=== PATIENT | male | born 1990 | race Caucasian/White ===

== ENCOUNTER 2017-10-09 13:51 | Emergency (ER) | payer SELFPAY ==
[2017-10-09 14:03] VITALS: BP 144/80
[2017-10-09] MEDS ORDERED: HYDROCODONE/ACETAMINOPHEN 5-325 MG (6 TAB/ER DISP) PO PRN (14:18)
[2017-10-09] MEDS ORDERED: LIDOCAINE 2% VISCOUS SOLN 20 ML UDCUP PO ONE (14:18)
[2017-10-09] MEDS ORDERED: PENICILLIN V POTASSIUM 500 MG TABLET PO ONE (14:18)
--- NOTE | 2017-10-09 14:25 | ER Document Report ---
HPI - HPI Patient complains to provider of: Dental pain tooth 18 and 14 Onset: Last week Quality of pain: Sharp, Throbbing Pain Level: 5 Context: 27-year-old male presented to ED for dental pain on tooth #18 and 14. He states he has had pain in this area for over a month but has not been able to follow-up with a dentist as he does not have dental insurance. Associated Symptoms: Other - Dental pain Exacerbated by: Other - Cold Relieved by: Denies Similar symptoms previously: Yes Recently seen / treated by doctor: No - ROS ROS below otherwise negative: Yes - CONSTITUTIONAL Constitutional: DENIES: Fever, Chills - EENT EENT: DENIES: Sore Throat, Ear Pain, Nasal Drainage-Clear, Nasal Drainage- Purulent, Congestion, Eye problems Notes: Dental pain tooth #14 and 18 - NEURO Neurology: DENIES: Headache, Weakness, Vision blurred, Dizzinesss / Vertigo - CARDIOVASCULAR Cardiovascular: DENIES: Chest pain - RESPIRATORY Respiratory: DENIES: Trouble Breathing, Coughing - GASTROINTESTINAL Gastrointestinal: DENIES: Abdominal Pain, Nausea, Patient vomiting, Diarrhea, Constipation, Black / Bloody Stools - URINARY Urinary: DENIES: Dysuria, Urgency, Frequency - REPRODUCTIVE Reproductive: DENIES: :, Postmenopausal, Abnormal bleeding / discharge - MUSCULOSKELETAL Musculoskeletal: DENIES: Extremity pain, Back Pain, Neck Pain, Swelling - DERM Skin Color: Normal Skin Problems: None Past Medical History - General Information source: Patient - Social History Smoking Status: Current Every Day Smoker Cigarette use (# per day): Yes - One half pack per day Chew tobacco use (# tins/day): No Smoking Education Provided: Yes - Minutes Frequency of alcohol use: Occasional Drug Abuse: None Occupation: Cook Lives with: Alone Family History: denies: Arthritis, CAD, COPD, CVA, DM, Hyperlipidemia, Hypertension, Malignancy, Thyroid Disfunction Patient has suicidal ideation: No Patient has homicidal ideation: No - Past Medical History Cardiac Medical History: Reports: None Pulmonary Medical History: Reports: None EENT Medical History: Reports: None Neurological Medical History: Reports: None Endocrine Medical History: Reports: None Renal/ Medical History: Reports: None Malignancy Medical History: Reports None GI Medical History: Reports: None Musculoskeltal Medical History: Reports None Skin Medical History: Reports None Psychiatric Medical History: Reports: None Traumatic Medical History: Reports: None Infectious Medical History: Reports: None Surgical Hx: Negative Past Surgical History: Reports: None - Immunizations Immunizations up to date: Yes Hx Diphtheria, Pertussis, Tetanus Vaccination: Yes Vertical Provider Document - CONSTITUTIONAL Agree With Documented VS: Yes Exam Limitations: No Limitations General Appearance: WD/WN, No Apparent Distress - INFECTION CONTROL TRAVEL OUTSIDE OF THE [place] IN LAST 30 DAYS: No - HEENT HEENT: Atraumatic, Normal ENT Exam, Normocephalic, PERRLA Mouth Diagram: 1 - Dental pain and tooth #14 with redness surrounding the tooth 2 - Dental pain in tooth #18 with redness surrounding the tooth - RESPIRATORY O2 Sat by Pulse Oximetry: 99 Course - Re-evaluation Re-evalutation: 10/10/17 02:15 Patient was treated with Penicillin VK in the emergency room and sent home with prescription for the Penicillin VK. Patient was also treated discussed lidocaine in a syringe that he can apply a small amount to the painful area every 2-3 hours as needed patient is instructed to follow-up with a dentist as this is only a temporary fix that he needs to have a tooth treated. - Vital Signs Vital signs: Temp Pulse Resp BP Pulse Ox 98.4 F 82 20 144/80 H 99 10/09/17 14:02 10/09/17 14:02 10/09/17 14:02 10/09/17 14:02 10/09/17 14:02 Discharge - Discharge Clinical Impression: Pain due to dental caries Condition: Stable Disposition: HOME, SELF-CARE Instructions: Family Physicians / Practices Additional Instructions: TOOTHACHE: Your pain is due to dental decay. The tooth must be repaired in order for you to feel better. You will, therefore, be referred to a dentist. We do not have dentists on the staff at [facility]. Severe swelling or drainage around a tooth usually means a dental abscess. This also requires evaluation and treatment by the dentist, but antibiotics may be prescribed while awaiting dental treatment. You should be rechecked immediately if you develop major swelling of the face, increasing pain, a lump in the jaw or gums, headache, difficulty swallowing, or fever. ORAL NARCOTIC MEDICATION: You have been given a Norman dispense pack for pain control. This medication is a narcotic. It's best taken with food, as nausea can result if taken on an empty stomach. Don't operate machinery or drive within six hours of taking this medication. Do not combine this medicine with alcohol, or with any medication which can cause sedation (such as cold tablets or sleeping pills) unless you get permission from the physician. Narcotics tend to cause constipation. If possible, drink plenty of fluids and eat a diet high in fiber and fruits. Please be aware that prescription narcotics also have the potential for abuse. People become addicted to these medications because of the general sense of wellbeing that they induce. This feeling along with a significant reduction in tension, anxiety, and aggression provides a stimulating seductive quality to these drugs. Once your pain is under control, we encourage you to discard your unused narcotics. PENICILLIN V K: You have been given a prescription for Penicillin VK. Your physician has determined that this is the best antibiotic for your condition. Pen VK can be taken with meals, however more of the antibiotic gets into the bloodstream if it's taken on an empty stomach. Penicillin usually has no side effects. However, allergy to penicillins is common. If you have had an allergic reaction to any drug of the penicillin family, you should never take any other penicillin. Notify your doctor at once if you develop hives, itching, swelling, faintness, or shortness of breath. FOLLOW-UP CARE: You have been referred for follow-up care to the dentists listed below. Call the dentists office for an appointment as you were instructed or within the next two days. If you experience worsening or a significant change in your symptoms, notify the physician immediately or return to the Emergency Department at any time for re-evaluation. [facility] [address] [place], [place] Saturday mornings, by appointment [facility] [address] [place] [address] [facility] [address] [facility] [address] [facility].. [facility] [address] [place] [email or web address] [address] [place] [address] Saturday- 8:00am to 5:00 pm Will see patients from other [facility]. Charges based on income and family size and accepts Medicare, Medicaid, and Insurances Will pull molars [facility] [id number] Hours of Operation 8:00 am - 4:30 pm weekdays The following dental offices accept Medicaid: [facility] [address] [place] Dr. Mccracken Joel Stephenson, Shel[place], and Jennifer oral surgery Dr. Trimble ([place]) Dr. Pryor ([place]) [facility] Drs. Brooke ([place]) Dr. Ceja ([place]) [facility] Dr. Carrillo ([place]) Drs. Brown and ([place]) Medicaid Care Line Prescriptions: Penicillin V Potassium [Penicillin Vk 500 mg Tablet] 500 mg PO BID #20 tablet Forms: Smoking Cessation Education, Elevated Blood Pressure
== END 2017-10-09 14:20 | disposition home or self-care (01) ==
LOC: ER 13:51
DX: K02.9 Dental caries, unspecified (principal); K08.89 Other specified disorders of teeth and supporting structures; F17.210 Nicotine dependence, cigarettes, uncomplicated
CPT/HCPCS: 99282; J3490

== ENCOUNTER 2019-04-14 21:16 | Emergency (ER) | payer SELFPAY ==
[2019-04-14 21:46] VITALS: BP 116/71
--- NOTE | 2019-04-14 22:48 | ER Document Report ---
ED General - General Chief Complaint: Leg Pain Stated Complaint: LEFT LEG PAIN Time Seen by Provider: 04/14/19 22:38 TRAVEL OUTSIDE OF THE [place] IN LAST 30 DAYS: No - HPI Patient complains to provider of: left leg pain Notes: Normally healthy 28-year-old male presents with pain on the posterior aspect of his left calf. 8/10 burning in nature without radiation some overlying redness. Patient is an area of fluctuance about 1 cm in size. Patient works in a very dirty environment multiple coworkers got abscesses staph infections. Patient denies any constitutional symptoms no fever chills nausea vomiting diarrhea dysuria. Patient denies IV drug use or immunocompromise status. - Related Data Allergies/Adverse Reactions: No Known Allergies Allergy (Verified 04/14/19 21:18) Past Medical History - Social History Smoking Status: Unknown if Ever Smoked Family History: None Renal/ Medical History: Denies: Hx Peritoneal Dialysis - Immunizations Immunizations up to date: Yes Hx Diphtheria, Pertussis, Tetanus Vaccination: Yes Physical Exam - Vital signs Vitals: Temp Pulse Resp BP Pulse Ox 98.1 F 70 18 139/89 H 97 04/14/19 21:30 04/14/19 21:30 04/14/19 21:30 04/14/19 21:30 04/14/19 21:30 - General General appearance: Appears well, Alert - Respiratory Respiratory status: No respiratory distress Chest status: Nontender Breath sounds: Normal Chest palpation: Normal - Extremities General upper extremity: Normal inspection, Nontender, Normal color, Normal ROM, Normal temperature General lower extremity: Normal inspection, Nontender, Normal color, Normal ROM, Normal temperature, Normal weight bearing. No: Angela's sign - Psychological Associated symptoms: Normal affect, Normal mood - Skin Skin Temperature: Warm Skin Moisture: Dry - Approximately 1 cm area of fluctuance and erythema posterior aspect left calf. Course - Re-evaluation Re-evalutation: 04/14/19 22:53 The back of his left calf. Incision and drainage performed successfully by myself expressing purulent material. Will initiate Bactrim therapy Dose given here, prescription for more of the same return if anything changes follow-up PCP - Vital Signs Vital signs: Temp Pulse Resp BP Pulse Ox 98.4 F 75 20 116/71 98 04/14/19 21:39 04/14/19 21:39 04/14/19 21:39 04/14/19 21:39 04/14/19 21:39 Procedures - Incision and Drainage Left Lower Leg Blade size: 11 I&D procedure: Betadine prep applied Incision Method: Incision made by scalpel Amount/type of drainage: 1 mL Discharge - Discharge Clinical Impression: Abscess Condition: Stable Disposition: HOME, SELF-CARE Instructions: Abscess (OM) Prescriptions: Sulfamethoxazole/Trimethoprim [Bactrim Ds Tablet] 1 each PO BID #14 tablet
[2019-04-14] MEDS ORDERED: SULFAMETHOXAZOLE/TRIMETHOPRIM 800-160 MG TABLET PO ONE (22:51)
== END 2019-04-14 23:16 | disposition home or self-care (01) ==
LOC: ER 21:16
DX: L02.91 Cutaneous abscess, unspecified (principal); Z20.818 Contact with and (suspected) exposure to other bacterial communicable diseases
CPT/HCPCS: 99283

== ENCOUNTER 2019-05-27 03:30 | Emergency (ER) | payer SELFPAY ==
--- NOTE | 2019-05-27 04:18 | ER Document Report ---
HPI - HPI Patient complains to provider of: back pain Pain Level: 5 Context: 28 Yr old male pt with the listed pmh, here for bilateral flank pain x3 days. Pain no better with lidocaine patches. pain somewhat worse with deep breathing. denies a productive cough. no ripping or tearing sensation. 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 He states his urine is a little darker than normal however denies any other UTI symptoms. No other trauma or injury. no hx of diabetes or asthma. normal bms. no testicular pain/swelling, penile dc/rash/lesions, or concerns for stds. denies swelling or hx of hernias. no abd surgeries unless otherwise noted. no recent abx or steroids. hasn't taken anything else for sx. no abdominal pain. No hx of gerd, gb dz, pancreatitis, gi bleed, ulcers, ibs, renal stones, or crohns. Pain may be a little worse with movement. better with rest a little also. No hx of this before. no sick contacts. no other uri sx. no spinal surgeries. no rash. no excessive nsaid use or etoh. no recent illness. pain not worse with eating. denies changes in color or caliber of stool. no other associated sx. hasn't sought care until now. Exacerbated by: Supine, Movement Relieved by: Remaining still Similar symptoms previously: Yes Recently seen / treated by doctor: No - ROS Systems Reviewed and Negative: Yes All other systems reviewed and negative - To include 10 systems, unless mentioned in the hpi. <TREMAYNE ARANDA - Last Filed: 05/27/19 07:44> <BETTYE WESLEY - Last Filed: 05/27/19 09:24> - HPI Time Seen by Provider: 05/27/19 03:58 Past Medical History - General Information source: Patient - Social History Smoking Status: Current Every Day Smoker Frequency of alcohol use: None Drug Abuse: None Lives with: Spouse/Significant other Family History: Reviewed & Not Pertinent Patient has suicidal ideation: No Patient has homicidal ideation: No - Medical History Medical History: Negative Renal/ Medical History: Denies: Hx Benign Prostatic Hyperplasia, Hx End Stage Renal Disease, Hx Hemodialysis, Hx Kidney Stones, Hx Peritoneal Dialysis Traumatic Medical History: Reports: None Surgical Hx: Negative - Immunizations Immunizations up to date: Yes Hx Diphtheria, Pertussis, Tetanus Vaccination: Yes <TREMAYNE ARANDA - Last Filed: 05/27/19 07:44> Vertical Provider Document - CONSTITUTIONAL Agree With Documented VS: Yes Exam Limitations: No Limitations General Appearance: Mild Distress Notes: Vital signs: All vital signs were reviewed per nursing notes. Gen. Appearance: Nontoxic, patient of stated age, pleasant, thin young white male, appears uncomfortable and in pain but not toxic, laying on his left side, speaking in full sentences, in no sign of resp distress, nontoxic, girlfriend at bedside Psychiatric: Alert and oriented x3, pleasant and very conversational, normal affect. Skin: Warm, pink, dry, normal turgor, no rashes. no grossly visible overlying skin changes or signs of trauma. HEENT: Normocephalic, atraumatic, no isabel signs. no raccoon eyes, pupils are equal and reactive to light, extraocular muscles intact, mucosal membranes moist, pink conjunctiva, no pharyngeal erythema no tonsilar exudate. no droolin g, tripoding, voice change or stridor, uvula midline. tongue protrudes midline Neck: Supple, no tenderness, no lymphadenopathy. full rom and full strength. no meningeal signs. no signs of central cord syndrome CV: Regular rate and rhythm, Lungs: Clear to auscultation bilaterally, no wheezes, symmetrical chest rise. no chest wall ttp Abdomen: Soft, nontender, nondistended, good bowel sounds, no rebound, rigidity, guarding or peritoneal signs. mild bilat CVA tenderness- R>L. This is a nonacute abdomen. No tenderness over McBurney's point. no grossly visible or palpable abdominal hernias Genitalia: pt deferred Rectal: deferred; however, no sign of loss of bowel or bladder, no soiling of clothing Back: There is increased tissue tension over the upper paralumbar musculature on the bilat sides- R>L. Palpation to this region did reproduce patient's pain exactly. There is no tenderness to palpation along the midline of the cervical, thoracic or lumbar spine. There are no step-offs or deformities noted. no overlying skin changes. Extremities: Distal pulses two out of four, good capillary refill, no edema, cyanosis or clubbing. full rom and full strength in all extremities with no pain on bilat hip flexion and extension. no swelling or ttp of the extremities. normal gait. good hand oncology rep. neg nelly sign. neg albert squeeze. no drop foot. no shortening or rotation of the limbs. no obvious deformities. Neuro: Cranial nerves II through XII intact, normal speech, cerebellar function intact. Symmetric smile and faces. reflexes wnl. motor and sensation intact to light touch. - INFECTION CONTROL TRAVEL OUTSIDE OF THE [place] IN LAST 30 DAYS: No <TREMAYNE ARANDA - Last Filed: 05/27/19 07:44> Course - Re-evaluation Re-evalutation: 05/27/19 04:19 Pt here for bilat upper paralumbar/flank pain-R>L x 3 days. labs were unremarkable other than a white count of 19k. ua neg. bcx and ucx pending. lactic wnl. due to hx, exam, and clinical appearance with tachycardia, i did get a ct stone survey showed a right pleural effusion that could represent pneumonia versus pulmonary infarct but was otherwise negative for anything acute per radiology and reviewed by myself. Secondary to this I did order CTA chest to rule out PE or other acute findings as patient does have bilateral flank pain that is worst in the right upper paralumbar/RLL/right CVA region. CTA is pending at the end of my shift. pt will be signed off to the on coming [facility] for final dispo after CTA results. please refer to their note for final dispo of the pt. he responded well to tx listed. he is neurononfocal. no sign of cauda equina, spinal cord involvement, or central cord syndrome. ambulates normally. pain controlled. vss. normal O2 sats on ra. non toxic. pt understands and agrees to plan. On reexam, pt improved with tx listed. remained stable. nontoxic. well appearing. pain controlled. tolerating po. requesting to go home. neurononfocal. Documentation achieved through voice recording which may lead to some occasional accidental typographical errors. Extensive efforts have been made to proof read documentation to make sure these are the least as possible. According to the [place] drug database, he has only received 10 oxycodone 10 mg tablets 04/15/[address] lennon Category Date Time Status CT ABD/PELVIS NO ORAL OR IV [CT] Stat Exams 05/27/19 05:27 Ordered CTA CHEST [CT] Stat Exams 05/27/19 07:08 Ordered BLOOD CULTURE [MC] Stat Lab 05/27/19 07:10 Ordered CBC WITH DIFF [HEME] Stat Lab 05/27/19 04:28 Ordered CHLAM BENITEZ PCR URINE INHOUSE [MO] Stat Lab 05/27/19 04:28 Ordered COMPREHENSIVE METABOLIC PANEL [CHEM] Stat Lab 05/27/19 04:28 Ordered LACTIC ACID SEPSIS [CHEM] Stat Lab 05/27/19 05:47 Ordered LIPASE [CHEM] Stat Lab 05/27/19 04:29 Ordered MANUAL DIFFERENTIAL [HEME] Stat Lab 05/27/19 04:43 Results PARTIAL THROMBOPLASTIN TIME [COAG] Stat Lab 05/27/19 07:09 Ordered PROTHROMBIN TIME/INR [COAG] Stat Lab 05/27/19 07:09 Ordered UA [URINALYSIS] [URIN] Stat Lab 05/27/19 04:05 Completed URINE CULTURE [MC] Stat Lab 05/27/19 04:34 Ordered URINE DRUG SCREEN [CHEM] Stat Lab 05/27/19 04:34 Ordered Ketorolac Tromethamine [Toradol Inj/Pf 30 mg/1 ml Sdv] Med 05/27/19 05:27 Once 30 mg IV NOW ONE Morphine Sulfate [Morphine 10 mg/ml Inj] Med 05/27/19 04:30 Discontinued 4 mg IV NOW ONE Morphine Sulfate [Morphine 10 mg/ml Inj] Med 05/27/19 07:09 Once 4 mg IV NOW ONE Normal Saline 1000 ml [NaCl 0.9% 1000 ml IV Soln] 1,000 Med 05/27/19 04:30 Discontinued ml IV BOLUS Normal Saline 1000 ml [NaCl 0.9% 1000 ml IV Soln] 1,000 Med 05/27/19 07:10 Ordered ml IV BOLUS Ondansetron HCl/Pf [Zofran Inj/Pf 4 mg/2 ml Sdv] Med 05/27/19 04:30 Discontinued 4 mg IV NOW ONE Ondansetron HCl/Pf [Zofran Inj/Pf 4 mg/2 ml Sdv] Med 05/27/19 07:09 Once 4 mg IV NOW ONE - Vital Signs Vital signs: Temp Pulse Resp BP Pulse Ox 98.8 F 113 H 20 154/95 H 99 05/27/19 03:31 05/27/19 03:31 05/27/19 03:31 05/27/19 03:31 05/27/19 03:31 05/27/19 07:46 Temp Pulse Resp BP Pulse Ox 05/27/19 03:31 98.8 F 113 H 20 154/95 H 99 - Laboratory Result Diagrams: 05/27/19 04:43 05/27/19 04:43 Laboratory results interpreted by me: 05/27/19 07:46 Labs- Entire Visit 05/27/19 05/27/19 05/27/19 04:05 04:05 04:43 WBC RBC Hgb Hct MCV MCH MCHC RDW Plt Count Lymph % (Auto) Long % (Auto) Eos % (Auto) Baso % (Auto) Absolute Neuts (auto) Absolute Lymphs (auto) Absolute Monos (auto) Absolute Eos (auto) Absolute Basos (auto) Total Counted Seg Neutrophils % Seg Neuts % (Manual) Lymphocytes % (Manual) Monocytes % (Manual) Eosinophils % (Manual) Basophils % (Manual) Abs Neuts (Manual) Abs Lymphs (Manual) Abs Monocytes (Manual) Absolute Eos (Manual) Abs Basophils (Manual) Toxic Vacuolation Platelet Comment RBC Morph Comment PT INR APTT Sodium 135.2 L Potassium 3.9 Chloride 94 L Carbon Dioxide 30 Anion Gap 11 BUN 9 Creatinine 0.72 Est GFR ( Amer) > 60 Est GFR (MDRD) Non-Af > 60 Glucose 137 H Lactic Acid Calcium 9.7 Total Bilirubin 0.9 Direct Bilirubin 0.2 Neonat Total Bilirubin Not Reportable Neonat Direct Bilirubin Not Reportable Neonat Indirect Bili Not Reportable AST 18 ALT 16 Alkaline Phosphatase 66 Total Protein 6.9 Albumin 4.2 Lipase Urine Color YELLOW Urine Appearance CLEAR Urine pH 6.0 Ur Specific [place] 1.009 Urine Protein NEGATIVE Urine Glucose (UA) NEGATIVE Urine Ketones NEGATIVE Urine Blood NEGATIVE Urine Nitrite NEGATIVE Urine Bilirubin NEGATIVE Urine Urobilinogen NEGATIVE Ur Leukocyte Esterase NEGATIVE Urine WBC (Auto) 1 Urine Ascorbic Acid NEGATIVE Urine Opiates Screen UNCONFIRMED POSITIVE Urine Methadone Screen NEGATIVE Ur Barbiturates Screen NEGATIVE Ur Phencyclidine Scrn NEGATIVE Ur Amphetamines Screen NEGATIVE U Benzodiazepines Scrn NEGATIVE Urine Cocaine Screen NEGATIVE U Marijuana (THC) Screen NEGATIVE Chlamydia DNA (PCR) N.gonorrhoeae DNA (PCR) 05/27/19 05/27/19 05/27/19 04:43 04:43 04:43 WBC 19.6 H RBC 5.04 Hgb 14.4 Hct 42.3 MCV 84 MCH 28.6 MCHC 34.1 RDW 12.8 Plt Count 213 Lymph % (Auto) Not Reportable Long % (Auto) Not Reportable Eos % (Auto) Not Reportable Baso % (Auto) Not Reportable Absolute Neuts (auto) Not Reportable Absolute Lymphs (auto) Not Reportable Absolute Monos (auto) Not Reportable Absolute Eos (auto) Not Reportable Absolute Basos (auto) Not Reportable Total Counted 100 Seg Neutrophils % Not Reportable Seg Neuts % (Manual) 91 H Lymphocytes % (Manual) 2 L Monocytes % (Manual) 7 Eosinophils % (Manual) 0 Basophils % (Manual) 0 Abs Neuts (Manual) 17.8 H Abs Lymphs (Manual) 0.4 L Abs Monocytes (Manual) 1.4 Absolute Eos (Manual) 0.0 Abs Basophils (Manual) 0.0 Toxic Vacuolation PRESENT Platelet Comment ADEQUATE RBC Morph Comment NORMO-CYTIC/CHROMIC PT 14.1 INR 1.08 APTT 37.9 H Sodium Potassium Chloride Carbon Dioxide Anion Gap BUN Creatinine Est GFR ( Amer) Est GFR (MDRD) Non-Af Glucose Lactic Acid Calcium Total Bilirubin Direct Bilirubin Neonat Total Bilirubin Neonat Direct Bilirubin Neonat Indirect Bili AST ALT Alkaline Phosphatase Total Protein Albumin Lipase 16.4 L Urine Color Urine Appearance Urine pH Ur Specific [place] Urine Protein Urine Glucose (UA) Urine Ketones Urine Blood Urine Nitrite Urine Bilirubin Urine Urobilinogen Ur Leukocyte Esterase Urine WBC (Auto) Urine Ascorbic Acid Urine Opiates Screen Urine Methadone Screen Ur Barbiturates Screen Ur Phencyclidine Scrn Ur Amphetamines Screen U Benzodiazepines Scrn Urine Cocaine Screen U Marijuana (THC) Screen Chlamydia DNA (PCR) N.gonorrhoeae DNA (PCR) 05/27/19 05/27/19 05:20 06:10 WBC RBC Hgb Hct MCV MCH MCHC RDW Plt Count Lymph % (Auto) Long % (Auto) Eos % (Auto) Baso % (Auto) Absolute Neuts (auto) Absolute Lymphs (auto) Absolute Monos (auto) Absolute Eos (auto) Absolute Basos (auto) Total Counted Seg Neutrophils % Seg Neuts % (Manual) Lymphocytes % (Manual) Monocytes % (Manual) Eosinophils % (Manual) Basophils % (Manual) Abs Neuts (Manual) Abs Lymphs (Manual) Abs Monocytes (Manual) Absolute Eos (Manual) Abs Basophils (Manual) Toxic Vacuolation Platelet Comment RBC Morph Comment PT INR APTT Sodium Potassium Chloride Carbon Dioxide Anion Gap BUN Creatinine Est GFR ( Amer) Est GFR (MDRD) Non-Af Glucose Lactic Acid 1.0 Calcium Total Bilirubin Direct Bilirubin Neonat Total Bilirubin Neonat Direct Bilirubin Neonat Indirect Bili AST ALT Alkaline Phosphatase Total Protein Albumin Lipase Urine Color Urine Appearance Urine pH Ur Specific [place] Urine Protein Urine Glucose (UA) Urine Ketones Urine Blood Urine Nitrite Urine Bilirubin Urine Urobilinogen Ur Leukocyte Esterase Urine WBC (Auto) Urine Ascorbic Acid Urine Opiates Screen Urine Methadone Screen Ur Barbiturates Screen Ur Phencyclidine Scrn Ur Amphetamines Screen U Benzodiazepines Scrn Urine Cocaine Screen U Marijuana (THC) Screen Chlamydia DNA (PCR) NOT DETECTED N.gonorrhoeae DNA (PCR) NOT DETECTED - Diagnostic Test Radiology reviewed: Image reviewed, Reports reviewed Radiology results interpreted by me: 05/27/19 07:47 Abdomen/Pelvis CT 05/27/19 05:27 IMPRESSION: No renal or ureteral calculi. Right pleural effusion with right basilar airspace disease. This could represent pneumonia, although pulmonary infarct can also have this appearance. <TREMAYNE ARANDA - Last Filed: 05/27/19 07:44> - Re-evaluation Re-evalutation: 05/27/19 08:00 Received report from SARAH Saab. Will await CTA results. 05/27/19 09:18 CTA of the chest does not show a pulmonary emboli at this time. He does have a right pleural effusion and it states that it could represent pneumonia. Due to the patient having a white blood cell count of 19,000, I will treat him with azithromycin. I strongly encouraged him to make sure that he finishes all his antibiotics. He also receive a [place] Dosepak to help with his pain. [facility]. I also talked to him about smoking cessation. Follow-up precautions were given. V erbal discharge instructions were given to the patient. They verbalized understanding. They are stable for discharge. - Vital Signs Vital signs: Temp Pulse Resp BP Pulse Ox 98.9 F 97 16 134/76 H 98 05/27/19 07:48 05/27/19 07:48 05/27/19 07:48 05/27/19 07:48 05/27/19 07:48 - Laboratory Result Diagrams: 05/27/19 04:43 05/27/19 04:43 Laboratory results interpreted by me: 05/27/19 05/27/19 05/27/19 04:43 04:43 04:43 WBC 19.6 H Seg Neuts % (Manual) 91 H Lymphocytes % (Manual) 2 L Abs Neuts (Manual) 17.8 H Abs Lymphs (Manual) 0.4 L APTT Sodium 135.2 L Chloride 94 L Glucose 137 H Lipase 16.4 L 05/27/19 04:43 WBC Seg Neuts % (Manual) Lymphocytes % (Manual) Abs Neuts (Manual) Abs Lymphs (Manual) APTT 37.9 H Sodium Chloride Glucose Lipase <MARYJANEBETTYE M - Last Filed: 05/27/19 09:24> Discharge <TREMAYNE ARANDA - Last Filed: 05/27/19 07:44> <MARYJANEBETTYE M - Last Filed: 05/27/19 09:24> - Discharge Clinical Impression: Tachycardia Back pain Qualifiers: Back pain location: back pain in unspecified location Chronicity: acute Back pain laterality: bilateral Qualified Code(s): M54.9 - Dorsalgia, unspecified Leukocytosis Qualifiers: Leukocytosis type: unspecified Qualified Code(s): D72.829 - Elevated white blood cell count, unspecified Pneumonia Qualifiers: Pneumonia type: due to unspecified organism Laterality: right Lung location: l ower lobe of lung Qualified Code(s): J18.1 - Lobar pneumonia, unspecified o rganism Condition: Good Disposition: HOME, SELF-CARE Additional Instructions: You are diagnosed with pneumonia. Finish your antibiotics as prescribed. Follow-up with PCP in 1 to 2 days. Return for any worsening symptoms. tylenol or motrin as needed for any pain or fever if not allergic. You are also being sent home with Fair[place], medication for pain. You can take 1 tablet every 6 hours as needed. Please use the sparingly. If you can, stick to ibuprofen and Tylenol and only take [place] for severe pain. Prescriptions: Azithromycin [Zithromax 250 mg Tablet] 250 mg PO DAILY #4 tablet
[2019-05-27 04:29] LABS: APPEARANCE,URINE CLEAR; BILIRUBIN,URINE NEGATIVE (NEGATIVE); COLOR,URINE YELLOW; GLUCOSE, URINE NEGATIVE (NEGATIVE); KETONES,URINE NEGATIVE (NEGATIVE); LEUKOCYTE ESTERASE,URINE NEGATIVE (NEGATIVE); NITRITE,URINE NEGATIVE (NEGATIVE); PROTEIN,URINE NEGATIVE (NEGATIVE); URINE SPECIFIC GRAVITY 1.009; UROBILINOGEN,URINE NEGATIVE mg/dL (<2.0)
[2019-05-27] MEDS ORDERED: MORPHINE SULFATE 10 MG/ML INJ IV ONE ×3 (04:30→09:19)
[2019-05-27] MEDS ORDERED: NORMAL SALINE 1000 ML 1,000 ML IV ONE ×2 (04:30→07:10)
[2019-05-27] MEDS ORDERED: ONDANSETRON HCL INJ/PF 4 MG/2 ML SDV IV ONE ×2 (04:30→07:09)
[2019-05-27 04:57] LABS: HEMATOCRIT 42.3 % (37.9-51.0); HEMOGLOBIN 14.4 g/dL (13.5-17.0); MEAN CORPUSCULAR HEMOGLOBIN 28.6 pg (27.0-33.4); MEAN CORPUSCULAR HGB CONC 34.1 g/dL (32.0-36.0); MEAN CORPUSCULAR VOLUME 84 fl (80-97); PLATELET COUNT 213 10^3/uL (150-450); RED BLOOD COUNT 5.04 10^6/uL (4.35-5.55); RED CELL DISTRIBUTION WIDTH 12.8 % (11.5-14.0); WHITE BLOOD COUNT 19.6 10^3/uL (4.0-10.5)
[2019-05-27 05:10] LABS: URINE AMPHETAMINES SCREEN NEGATIVE; URINE BARBITURATES SCREEN NEGATIVE; URINE BENZODIAZEPINES SCREEN NEGATIVE; URINE COCAINE SCREEN NEGATIVE; URINE MARIJUANA (THC) SCREEN NEGATIVE; URINE METHADONE SCREEN NEGATIVE; URINE PHENCYCLIDINE SCREEN NEGATIVE
[2019-05-27 05:18] LABS: ALBUMIN 4.2 g/dL (3.5-5.0); ALKALINE PHOSPHATASE 66 U/L (38-126); ANION GAP 11 (5-19); ASPARTATE AMINO TRANSFERASE 18 U/L (17-59); BILIRUBIN,DIRECT 0.2 mg/dL (0.0-0.4); BILIRUBIN,TOTAL 0.9 mg/dL (0.2-1.3); BLOOD UREA NITROGEN 9 mg/dL (7-20); CALCIUM 9.7 mg/dL (8.4-10.2); CARBON DIOXIDE 30 mmol/L (22-30); CHLORIDE 94 mmol/L (98-107); GLUCOSE 137 mg/dL (75-110); POTASSIUM 3.9 mmol/L (3.6-5.0); TOTAL PROTEIN 6.9 g/dL (6.3-8.2)
[2019-05-27 05:20] LABS: ABSOLUTE LYMPHOCYTES# (MANUAL) 0.4 10^3/uL (0.5-4.7); ABSOLUTE MONOCYTES # (MANUAL) 1.4 10^3/uL (0.1-1.4); BASOPHILS % (MANUAL) 0 % (0-2); EOSINOPHILS % (MANUAL) 0 % (0-6); LYMPHOCYTES % (MANUAL) 2 % (13-45); MONOCYTES % (MANUAL) 7 % (3-13); SEGMENTED NEUTROPHILS % (MAN) 91 % (42-78); TOTAL CELLS COUNTED 100
[2019-05-27 05:21] LABS: PLATELET COMMENT ADEQUATE; RBC MORPHOLOGY COMMENT NORMO-CYTIC/CHROMIC; TOXIC VACUOLATION PRESENT
[2019-05-27] MEDS ORDERED: KETOROLAC TROMETHAMINE INJ/PF 30 MG/1 ML SDV IV ONE (05:27)
--- NOTE | 2019-05-27 06:26 | RADIOLOGY REPORT (SQ) ---
CLINICAL HISTORY: bilat flank pain, white count 19 COMPARISON: None. TECHNIQUE: CT ABDOMEN PELVIS WITHOUT IV CONTRAST on 05/27/2019 5:27 AM CDT This exam was performed according to our departmental dose-optimization program, which includes automated exposure control, adjustment of the mA and/or kV according to patient size and/or use of iterative reconstruction technique. FINDINGS: There is mild right basilar airspace disease. There is a small right pleural effusion. Abdomen: The liver is normal in appearance. There is no biliary dilatation. Gallbladder is normal in appearance. The pancreas and spleen are normal in appearance. The adrenal glands and kidneys are unremarkable. Abdominal aorta is normal in course and caliber without aneurysm. There is no free air. There is no retroperitoneal adenopathy. Pelvis: There is no bowel obstruction. Urinary bladder is unremarkable. There is no free fluid. Appendix is normal. Skeleton: There are no acute osseous findings. No suspicious bony lesions. IMPRESSION: No renal or ureteral calculi. Right pleural effusion with right basilar airspace disease. This could represent pneumonia, although pulmonary infarct can also have this appearance.
[2019-05-27 07:04] LABS: CHLAM PCR NOT DETECTED (NOT DETECT)
[2019-05-27 07:29] LABS: INTERNATIONAL RATION (INR) 1.08; PROTHROMBIN TIME 14.1 SEC (11.4-15.4)
[2019-05-27 07:30] LABS: PARTIAL THROMBOPLASTIN TIME 37.9 SEC (23.5-35.8)
--- NOTE | 2019-05-27 08:51 | RADIOLOGY REPORT (SQ) ---
EXAM DESCRIPTION: CTA CHEST COMPLETED DATE/TIME: 05/27/2019 8:21 am REASON FOR STUDY: r/o pe, abnormal ct abd/pelv, rt flk pain, tachy COMPARISON: Same day CT. TECHNIQUE: CT scan of the chest performed using helical scanning technique with dynamic intravenous contrast injection. Images reviewed with lung, soft tissue and bone windows. Reconstructed coronal and sagittal MPR images reviewed. Additional 3 dimensional post-processing performed to develop Maximal Intensity Projection images (SC P). All images stored on PACS. All CT scanners at this facility use dose modulation, iterative reconstruction, and/or weight based d osing when appropriate to reduce radiation dose to as low as reasonably achievable (ALARA). [facility]: Dose Right [facility]: CareDose [facility]: Dose Right [facility]: Teradose 4D [facility]: [employer] CONTRAST TYPE AND DOSE: contrast/concentration: Isovue 350.00 mg/ml; Total Contrast Delivered: 58.0 ml; Total Saline Delivered: 70.0 ml Contrast bolus adequate for pulmonary arteries and aorta. RENAL FUNCTION: Creatinine 0.72 RADIATION DOSE: CT Rad equipment meets quality standard of care and radiation dose reduction techniq ues were employed. CTDIvol: 6.6 - 14.3 mGy. DLP: 532 mGy-cm. . LIMITATIONS: None. FINDINGS: LUNGS AND PLEURA: Trace right pleural effusion with mild right lower lobe consolidation, l ikely atelectasis. Minimal left lower lobe dependent hypoventilatory change. No other airspace dise ase. No pneumothorax. No discrete pulmonary masses. AORTA AND GREAT VESSELS: No aneurysm. Contrast bolus not optimized for the aorta. HEART: No pericardial effusion. No significant coronary artery calcifications. PULMONARY ARTERIES: No emboli visualized in the main pulmonary arteries or the segmental branches. HILAR AND MEDIASTINAL STRUCTURES: No identified masses or abnormal nodes. HARDWARE: None in the chest. UPPER ABDOMEN: See separate report of the CT of the abdomen. THYROID AND OTHER SOFT TISSUES: No masses. No adenopathy. BONES: No acute or significant finding. 3D MIPS: Confirm above findings. OTHER: No other significant finding. IMPRESSION: 1. Trace right pleural effusion with mild right lower lobe consolidation, likely atelec tasis although infection not excluded. 2. No evidence of pulmonary embolus. COMMENT: Quality ID # [id number]: Final reports with documentation of one or more dose reduction techniques (e.g., Automated exposure control, adjustment of the mA and/or kV according to patient size, use of iterative reconstruction technique) TECHNICAL DOCUMENTATION: JOB ID: [id number] [employer]- All Rights Reserved Reading location - IP/workstation name: [email or web address]
[2019-05-27] MEDS ORDERED: AZITHROMYCIN 250 MG TABLET PO ONE (09:15)
[2019-05-27] MEDS ORDERED: HYDROCODONE/ACETAMINOPHEN 5-325 MG (6 TAB/ER DISP) PO PRN (09:15)
[2019-05-27 09:53] VITALS: BP 135/80
== END 2019-05-27 10:03 | disposition home or self-care (01) ==
LOC: ER 03:30
DX: J18.1 Lobar pneumonia, unspecified organism (principal); R00.0 Tachycardia, unspecified; M54.9 Dorsalgia, unspecified; D72.829 Elevated white blood cell count, unspecified
CPT/HCPCS: 36415; 87040; 83690; 85025; 85610; 85730; 80053; 81001; 80307; 87491; 87591; 83605; 71275; 74176; J1885; J2270; J2405; J7030; 87077; 87086

== ENCOUNTER 2019-05-29 00:50 | Emergency (ER) | payer SELFPAY ==
--- NOTE | 2019-05-29 01:23 | ER Document Report ---
ED Medical Screen (RME) - General Chief Complaint: Shortness Of Breath Stated Complaint: DIFFICULTY BREATHING Time Seen by Provider: 05/29/19 01:12 Mode of Arrival: Ambulatory Information source: Patient Notes: 28-year-old male presented to ED for very short of breath. He states his lower back is more painful than when he was seen here recently and diagnosed with pneumonia. He states he was told that if he had any increase in symptoms he was to come right back. He states his pain is much worse than it was. His temperature is 99.1 pulse blood pressure is 152/90 pulse is 123 O2 sat is 98% and respirations are 24. He is moaning while I talked to him. Patient is alert and oriented. Blood urine and EKG have been ordered. I have greeted and performed a rapid initial assessment of this patient. A comprehensive ED assessment and evaluation of the patient, analysis of test results and completion of medical decision making process will be conducted by an additional ED providers. TRAVEL OUTSIDE OF THE [place] IN LAST 30 DAYS: No - Related Data Allergies/Adverse Reactions: No Known Allergies Allergy (Verified 05/27/19 03:30) Past Medical History Renal/ Medical History: Denies: Hx Benign Prostatic Hyperplasia, Hx End Stage Renal Disease, Hx Hemodialysis, Hx Kidney Stones, Hx Peritoneal Dialysis - Immunizations Immunizations up to date: Yes Hx Diphtheria, Pertussis, Tetanus Vaccination: Yes
--- NOTE | 2019-05-29 01:46 | RADIOLOGY REPORT (SQ) ---
EXAM DESCRIPTION: XR CHEST 2 VIEWS COMPLETED DATE/TME: 05/29/2019 01:17 CLINICAL HISTORY: 28 years, Male, short of breath increase pain in upper back Comparison: None FINDINGS: Minimal left basilar subsegmental atelectasis. The lungs are otherwise clear. Decreased lung volumes. No pleural effusion. No pneumothorax. Cardiac and mediastinal silhouette is unremarkable. No acute osseous abnormality. Soft tissues are unremarkable. IMPRESSION: Left basilar subsegmental atelectasis.
[2019-05-29 03:20] LABS: ABSOLUTE LYMPHOCYTES (AUTO) 0.8 10^3/uL (0.5-4.7); ABSOLUTE MONOCYTES (AUTO) 1.7 10^3/uL (0.1-1.4); ABSOLUTE NEUT (AUTO) 12.9 10^3/uL (1.7-8.2); BASOPHILS % (AUTO) 0.1 % (0-2); HEMATOCRIT 38.7 % (37.9-51.0); HEMOGLOBIN 13.4 g/dL (13.5-17.0); LYMPHOCYTES % (AUTO) 5.5 % (13-45); MEAN CORPUSCULAR HEMOGLOBIN 29.4 pg (27.0-33.4); MEAN CORPUSCULAR HGB CONC 34.6 g/dL (32.0-36.0); MEAN CORPUSCULAR VOLUME 85 fl (80-97); MONOCYTES % (AUTO) 10.8 % (3-13); PLATELET COUNT 204 10^3/uL (150-450); RED BLOOD COUNT 4.56 10^6/uL (4.35-5.55); SEGMENTED NEUTROPHILS % (AUTO) 83.6 % (42-78); TOTAL CELLS COUNTED % (AUTO) 100 %; WHITE BLOOD COUNT 15.4 10^3/uL (4.0-10.5)
[2019-05-29 03:35] LABS: ALBUMIN 3.7 g/dL (3.5-5.0); ALKALINE PHOSPHATASE 129 U/L (38-126); ANION GAP 12 (5-19); ASPARTATE AMINO TRANSFERASE 43 U/L (17-59); BILIRUBIN,DIRECT 1.1 mg/dL (0.0-0.4); BILIRUBIN,TOTAL 1.7 mg/dL (0.2-1.3); BLOOD UREA NITROGEN 7 mg/dL (7-20); CALCIUM 9.2 mg/dL (8.4-10.2); CARBON DIOXIDE 27 mmol/L (22-30); CHLORIDE 97 mmol/L (98-107); GLUCOSE 124 mg/dL (75-110); POTASSIUM 3.9 mmol/L (3.6-5.0); TOTAL PROTEIN 6.4 g/dL (6.3-8.2)
[2019-05-29] MEDS ORDERED: MORPHINE SULFATE 10 MG/ML INJ IV ONE (03:40)
--- NOTE | 2019-05-29 03:45 | ER Document Report ---
ED General - General Chief Complaint: Shortness Of Breath Stated Complaint: DIFFICULTY BREATHING Time Seen by Provider: 05/29/19 01:12 Primary Care Provider: [facility] [NO LOCAL MD] - Follow up as needed Mode of Arrival: Ambulatory TRAVEL OUTSIDE OF THE U.S. IN LAST 30 DAYS: No - HPI Notes: This is a 28-year-old gentleman who presents today with a complaint of constant right-sided chest pain for the past week. Pain is described as sharp, nonradiating. Pain is worse with movement and palpation. He denies any recent trauma. He denies any dyspnea. He denies any fever or chills. He denies any cough or congestion. He denies any recent long travel. Describes his pain is severe. - Related Data Allergies/Adverse Reactions: No Known Allergies Allergy (Verified 05/27/19 03:30) Past Medical History - General Information source: Patient - Social History Smoking Status: Current Every Day Smoker Frequency of alcohol use: None Drug Abuse: None Family History: Reviewed & Not Pertinent Renal/ Medical History: Denies: Hx Benign Prostatic Hyperplasia, Hx End Stage Renal Disease, Hx Hemodialysis, Hx Kidney Stones, Hx Peritoneal Dialysis - Immunizations Immunizations up to date: Yes Hx Diphtheria, Pertussis, Tetanus Vaccination: Yes Review of Systems - Review of Systems Cardiovascular: Chest pain. denies: Orthopnea, Dyspnea, Syncope Musculoskeletal: denies: Joint swelling, Leg swelling Neurological/Psychological: denies: Weakness -: Yes All other systems reviewed and negative Physical Exam - Vital signs Vitals: Temp Pulse Resp BP Pulse Ox 98.0 F 123 H 24 H 152/90 H 99 05/29/19 01:17 05/29/19 01:05/29/19 01:05/29/19 01:05/29/19 01:17 - General Notes: Patient appears uncomfortable, in pain. - Respiratory Respiratory status: No respiratory distress Chest status: Nontender Breath sounds: Normal Chest palpation: Tender - There is right chest wall tenderness to palpation. Pain is reproducible with movement.. No: Flail segment, [place] frothy sputum - Cardiovascular Heart sounds: Normal auscultation Murmur: No - Abdominal Inspection: Normal Distension: No distension Bowel sounds: Normal Tenderness: Nontender Organomegaly: No organomegaly - Extremities General upper extremity: Normal inspection, Nontender, Normal color, Normal ROM, Normal temperature General lower extremity: Normal inspection, Nontender, Normal color, Normal ROM, Normal temperature, Normal weight bearing. No: Angela's sign - Neurological Neuro grossly intact: Yes Cognition: Normal Orientation: AAOx4 [place] Coma Scale Eye Opening: Spontaneous [place] Coma Scale Verbal: Oriented [place] Coma Scale Motor: Obeys Commands [place] Coma Scale Total: 15 Speech: Normal Motor strength normal: LUE, RUE, LLE, RLE Sensory: Normal Course - Re-evaluation Re-evalutation: 05/29/19 03:44 Differential diagnosis includes chest wall pain versus costochondritis versus pneumonia versus pulmonary embolus. There is no clinical suspicion for acute coronary syndrome. EKG shows sinus tachycardia at 109 bpm. Normal axis. Normal intervals. No acute injury pattern. 05/29/19 05:39 I reviewed patient's medical records. He was seen here 2 days ago with similar presentation. He had a CT angiogram was negative. He is on a Z-Dominguez. Of Counseled the patient to continue his Z-Dominguez. I will put him on some the first pain. There is no indication to repeat CT at this time. He is stable for discharge. - Vital Signs Vital signs: Temp Pulse Resp BP Pulse Ox 98.8 F 123 H 26 H 136/78 H 99 05/29/19 06:01 05/29/19 01:17 05/29/19 06:00 05/29/19 06:00 05/29/19 06:00 - Laboratory Result Diagrams: 05/29/19 03:00 05/29/19 03:00 Laboratory results interpreted by me: 05/29/19 05/29/19 05/29/19 03:00 03:00 03:45 WBC 15.4 H Hgb 13.4 L Lymph % (Auto) 5.5 L Absolute Neuts (auto) 12.9 H Absolute Monos (auto) 1.7 H Seg Neutrophils % 83.6 H Sodium 135.9 L Chloride 97 L Glucose 124 H Total Bilirubin 1.7 H Direct Bilirubin 1.1 H Alkaline Phosphatase 129 H Urine Protein 100 H Urine Blood MODERATE H Urine Bilirubin SMALL H Urine Urobilinogen 4.0 H Discharge - Discharge Clinical Impression: Pleurisy, Acute bacterial bronchitis Condition: Good Disposition: HOME, SELF-CARE Instructions: Bronchitis ([facility]), Pleurisy ([facility]) Additional Instructions: Continue taking azithromycin prescribed 2 days ago. Follow-up with the community care clinic. Prescriptions: Naproxen 500 mg PO BID PRN #14 tablet PRN Reason: Oxycodone HCl/Acetaminophen [Percocet 5-325 mg Tablet] 1 tab PO Q4H PRN #15 tablet PRN Reason: Referrals: [facility] [NO LOCAL MD] - Follow up as needed
[2019-05-29 04:07] LABS: APPEARANCE,URINE CLEAR; BILIRUBIN,URINE SMALL (NEGATIVE); COLOR,URINE AMBER; GLUCOSE, URINE NEGATIVE (NEGATIVE); KETONES,URINE NEGATIVE (NEGATIVE); LEUKOCYTE ESTERASE,URINE NEGATIVE (NEGATIVE); NITRITE,URINE NEGATIVE (NEGATIVE); PROTEIN,URINE 100 mg/dL (NEGATIVE); URINE SPECIFIC GRAVITY 1.023
[2019-05-29] MEDS ORDERED: KETOROLAC TROMETHAMINE INJ/PF 30 MG/1 ML SDV IV ONE (04:53)
[2019-05-29 06:20] VITALS: BP 136/78
--- NOTE | 2019-05-29 07:36 | EKG REPORT ---
SEVERITY:- OTHERWISE NORMAL ECG - SINUS TACHYCARDIA : Confirmed by: Waylon Fry MD 29-May-2019 07:35:05
== END 2019-05-29 06:22 | disposition home or self-care (01) ==
LOC: ER 00:50
DX: J20.9 Acute bronchitis, unspecified (principal); B96.89 Other specified bacterial agents as the cause of diseases classified elsewhere; R09.1 Pleurisy; R06.02 Shortness of breath; R07.9 Chest pain, unspecified; F17.200 Nicotine dependence, unspecified, uncomplicated
CPT/HCPCS: 93005; 36415; 87040; 85025; 87077; 80053; 81001; 71046; 93010; J1885; J2270; 87186; 96374; 96375; 99285

== ENCOUNTER 2019-05-30 16:32 | Inpatient (IN) | payer SELFPAY ==
[2019-05-30] MEDS ORDERED: VANCOMYCIN HCL INJ 1000 MG VIAL IV ONE (16:53)
[2019-05-30] MEDS ORDERED: NORMAL SALINE 1000 ML 1,000 ML IV ONE ×2 (16:55→19:24)
--- NOTE | 2019-05-30 16:56 | ER Document Report ---
ED Medical Screen (RME) - General Chief Complaint: Abnormal Lab Results Stated Complaint: ABNORMAL LABS Time Seen by Provider: 05/30/19 16:47 Mode of Arrival: Ambulatory Information source: Patient Notes: This 28-year-old male presents emergency department return because he was notified by the emergency department that his final blood cultures were positive for MRSA. Patient reports he continues to have difficulty breathing mid back pain severe. Reports symptoms for over a week. Reports he quit smoking 6 days ago. Decreased appetite. Reports he think he may have a fever but he is unsure he is not taking it. Reports he is been sweating a lot. Patient is tachypneic. Very anxious. I have greeted and performed a rapid initial assessment of this patient. A comprehensive ED assessment and evaluation of the patient, analysis of test results and completion of the medical decision making process will be conducted by additional ED providers. Dictation of this chart was performed using voice recognition software; therefore, there may be some unintended grammatical errors. TRAVEL OUTSIDE OF THE U.S. IN LAST 30 DAYS: No - Related Data Allergies/Adverse Reactions: No Known Allergies Allergy (Verified 05/27/19 03:30) Past Medical History Pulmonary Medical History: Reports: Hx Pneumonia Renal/ Medical History: Denies: Hx Benign Prostatic Hyperplasia, Hx End Stage Renal Disease, Hx Hemodialysis, Hx Kidney Stones, Hx Peritoneal Dialysis - Immunizations Immunizations up to date: Yes Hx Diphtheria, Pertussis, Tetanus Vaccination: Yes Physical Exam - Vital signs Vitals: Temp Pulse Resp BP Pulse Ox 99.6 F 126 H 24 H 132/83 H 97 05/30/19 16:37 05/30/19 16:37 05/30/19 16:37 05/30/19 16:37 05/30/19 16:37 Course - Vital Signs Vital signs: Temp Pulse Resp BP Pulse Ox 99.6 F 126 H 24 H 132/83 H 97 05/30/19 16:37 05/30/19 16:37 05/30/19 16:37 05/30/19 16:37 05/30/19 16:37 - Laboratory Result Diagrams: 05/30/19 17:05 05/30/19 17:05 Laboratory results interpreted by me: 05/30/19 05/30/19 05/30/19 17:05 17:05 17:05 WBC 16.5 H Hgb 13.4 L Lymph % (Auto) 6.4 L Absolute Neuts (auto) 14.0 H Seg Neutrophils % 85.0 H Sodium 136.7 L Total Bilirubin 2.0 H Direct Bilirubin 1.3 H Alkaline Phosphatase 175 H NT-Pro-B Natriuret Pep 350 H Urine Protein Urine Blood Urine Bilirubin Urine Urobilinogen 05/30/19 17:05 WBC Hgb Lymph % (Auto) Absolute Neuts (auto) Seg Neutrophils % Sodium Total Bilirubin Direct Bilirubin Alkaline Phosphatase NT-Pro-B Natriuret Pep Urine Protein 100 H Urine Blood MODERATE H Urine Bilirubin SMALL H Urine Urobilinogen 4.0 H
--- NOTE | 2019-05-30 17:08 | ER Document Report ---
ED General - General Chief Complaint: Abnormal Lab Results Stated Complaint: ABNORMAL LABS Time Seen by Provider: 05/30/19 16:47 Mode of Arrival: Ambulatory TRAVEL OUTSIDE OF THE [place].S. IN LAST 30 DAYS: No - HPI Notes: 28-year-old male to the emergency department with complaints of persistent right-sided chest pain and shortness of breath that has gotten progressively worse for the past week. He states that he has had subjective fevers at home. He was seen initially on May 27 for chest pain. He had a CTA at that time with a possible right lower lobe pneumonia. He was started on a Z-Dominguez and sent home. He states that he did not gotten better and he came back yesterday after he was called to return. He states he was seen and had another x-ray and was told to continue and finish the Z-Dominguez and sent home again. He states that he received a phone call saying that he had positive blood cultures and was told to come back today. It is of note that patient is growing positive blood cultures for MRSA from the and 29 May. He states that he has had progr essively worsening shortness of breath and significant pain on the right side of his chest. Of note he is an IV drug user. He cannot tell me when the last time he used but he thinks it was in the past several weeks. - Related Data Allergies/Adverse Reactions: No Known Allergies Allergy (Verified 05/27/19 03:30) Past Medical History - General Information source: Patient - Social History Smoking Status: Current Every Day Smoker Family History: Reviewed & Not Pertinent Patient has suicidal ideation: No Patient has homicidal ideation: No Pulmonary Medical History: Reports: Hx Pneumonia Renal/ Medical History: Denies: Hx Benign Prostatic Hyperplasia, Hx End Stage Renal Disease, Hx Hemodialysis, Hx Kidney Stones, Hx Peritoneal Dialysis - Immunizations Immunizations up to date: Yes Hx Diphtheria, Pertussis, Tetanus Vaccination: Yes Physical Exam - Vital signs Vitals: Temp Pulse Resp BP Pulse Ox 99.6 F 126 H 24 H 132/83 H 97 05/30/19 16:37 05/30/19 16:37 05/30/19 16:37 05/30/19 16:37 05/30/19 16:37 Course - Re-evaluation Re-evalutation: 05/30/19 18:[address] Segura, ER attending. She agrees patient needs to be admitted. Would like for me to speak with medicine for admission. Spoke with Dr. Reagan, hospitalist. He agrees that patient needs to be admitted but would like for me to call the ICU attending to discuss need for ICU admission. Page is out to Dr. Garrett. Will await her return phone call. 05/30/19 19:[address] Garrett, ICU attending. She believes patient needs higher level of care than what is offered here. She thinks that patient will need CT surgery capabilities if in indeed he has infectious endocarditis. Updated Dr. Segura. We will attempt to start transfer of patient. Updated patient and family about the plan and my concerns. They would like to start with [facility] for possible transfer. 05/30/19 20:[address] Nevarez, Cardiology from [facility]. He feels like patient should be admitted to the medicine team. We discussed our resources here. He does think it is reasonable to have the patient transferred to [facility] for further evaluation for possible infectious endocarditis. Will await return page from Hospitalist team at [facility] for further discussion. 05/30/19 21:[address] Albino Silva as [facility] hospitalist. He states that he feels like the patient could appropriately have his work up initiated and managed here at [place]. Does not believe patient emergent transfer to a tertiary center. Would like for either our hospitalist team or our cardiac nurse specialist to see patient prior to accepting. Spoke with Dr. Mccauley -- our hospitalist here. He still feels that patient would be best suited to go to the ICU here and asks I speak with Dr. Garrett. Spoke with Dr. Garrett. Discussed conversation with [facility] Hospitalist. She will accept patient to her service and patient will go to the ICU. Impression: MRSA bacteremia, right sided chest pain, hx of IV drug abuse -- high suspicion for an infectious endocarditis. Patient to be admitted to the ICU for further care and management. Updated patient and family about the plan and they agree. - Vital Signs Vital signs: Temp Pulse Resp BP Pulse Ox 98.4 F 95 16 127/74 H 97 05/30/19 19:04 05/30/19 19:04 05/30/19 19:04 05/30/19 19:04 05/30/19 19:04 - Laboratory Result Diagrams: 05/30/19 17:05 05/30/19 17:05 Laboratory results interpreted by me: 05/30/19 05/30/19 05/30/19 17:05 17:05 17:05 WBC 16.5 H Hgb 13.4 L Lymph % (Auto) 6.4 L Absolute Neuts (auto) 14.0 H Seg Neutrophils % 85.0 H Sodium 136.7 L Total Bilirubin 2.0 H Direct Bilirubin 1.3 H Alkaline Phosphatase 175 H NT-Pro-B Natriuret Pep 350 H Urine Protein Urine Blood Urine Bilirubin Urine Urobilinogen 05/30/19 17:05 WBC Hgb Lymph % (Auto) Absolute Neuts (auto) Seg Neutrophils % Sodium Total Bilirubin Direct Bilirubin Alkaline Phosphatase NT-Pro-B Natriuret Pep Urine Protein 100 H Urine Blood MODERATE H Urine Bilirubin SMALL H Urine Urobilinogen 4.0 H - Diagnostic Test Radiology reviewed: Image reviewed, Reports reviewed Critical Care Note - Critical Care Note Total time excluding time spent on procedures (mins): 72 Comments: 72 minutes of critical care time was spent on patient with beside education with family and patient, speaking with consultants, managing care for admission. Discharge - Discharge Clinical Impression: Bacteremia, Right-sided chest pain, Tachycardia, History of intravenous drug abuse Disposition: ADMITTED INPATIENT Admitting Provider: Luz Garrett Unit Admitted: ICU
[2019-05-30] MEDS ORDERED: ONDANSETRON HCL INJ/PF 4 MG/2 ML SDV IV ONE (17:19)
[2019-05-30] MEDS ORDERED: MORPHINE SULFATE 10 MG/ML INJ IV ONE ×3 (17:19→20:25)
[2019-05-30 17:38] LABS: ABSOLUTE MONOCYTES (AUTO) 1.4 10^3/uL (0.1-1.4); BASOPHILS % (AUTO) 0.2 % (0-2); EOSINOPHILS % (AUTO) 0.2 % (0-6); HEMATOCRIT 39.9 % (37.9-51.0); HEMOGLOBIN 13.4 g/dL (13.5-17.0); LYMPHOCYTES % (AUTO) 6.4 % (13-45); MEAN CORPUSCULAR HEMOGLOBIN 28.9 pg (27.0-33.4); MEAN CORPUSCULAR HGB CONC 33.7 g/dL (32.0-36.0); MEAN CORPUSCULAR VOLUME 86 fl (80-97); MONOCYTES % (AUTO) 8.2 % (3-13); PLATELET COUNT 281 10^3/uL (150-450); RED BLOOD COUNT 4.64 10^6/uL (4.35-5.55); RED CELL DISTRIBUTION WIDTH 13.4 % (11.5-14.0); TOTAL CELLS COUNTED % (AUTO) 100 %; WHITE BLOOD COUNT 16.5 10^3/uL (4.0-10.5)
[2019-05-30 17:44] LABS: APPEARANCE,URINE CLEAR; BILIRUBIN,URINE SMALL (NEGATIVE); COLOR,URINE AMBER; GLUCOSE, URINE NEGATIVE (NEGATIVE); KETONES,URINE NEGATIVE (NEGATIVE); LEUKOCYTE ESTERASE,URINE NEGATIVE (NEGATIVE); NITRITE,URINE NEGATIVE (NEGATIVE); PROTEIN,URINE 100 mg/dL (NEGATIVE); URINE SPECIFIC GRAVITY 1.021
[2019-05-30 17:58] LABS: ALBUMIN 3.5 g/dL (3.5-5.0); ALKALINE PHOSPHATASE 175 U/L (38-126); ANION GAP 11 (5-19); ASPARTATE AMINO TRANSFERASE 47 U/L (17-59); BILIRUBIN,DIRECT 1.3 mg/dL (0.0-0.4); BLOOD UREA NITROGEN 14 mg/dL (7-20); CALCIUM 9.2 mg/dL (8.4-10.2); CARBON DIOXIDE 28 mmol/L (22-30); CHLORIDE 98 mmol/L (98-107); GLUCOSE 97 mg/dL (75-110); POTASSIUM 4.1 mmol/L (3.6-5.0); TOTAL PROTEIN 6.7 g/dL (6.3-8.2)
--- NOTE | 2019-05-30 18:02 | RADIOLOGY REPORT (SQ) ---
EXAM DESCRIPTION: CHEST 2 VIEWS COMPLETED DATE/TIME: 05/30/2019 5:50 pm REASON FOR STUDY: chest pain, + blood cultures COMPARISON: 05/29/2019 TECHNIQUE: Frontal and lateral radiographic views of the chest acquired. NUMBER OF VIEWS: Two view. LIMITATIONS: None. FINDINGS: LUNGS AND PLEURA: No pneumothorax. New small areas of patchy right basilar airspace disea se and small pleural effusion. MEDIASTINUM AND HILAR STRUCTURES: Stable. HEART AND VASCULAR STRUCTURES: Stable. BONES: No acute findings. HARDWARE: None in the chest. OTHER: No other significant finding. IMPRESSION: New small areas of patchy right basilar airspace disease and small pleural effusion. TECHNICAL DOCUMENTATION: JOB ID: [id number] [id number] 2010 [employer]- All Rights Reserved Reading location - IP/workstation name: [email or web address]
[2019-05-30 18:09] LABS: NT PRO BNP 350 pg/mL (<125)
[2019-05-30 18:13] LABS: TROPONIN I < 0.012 ng/mL
[2019-05-30] MEDS ORDERED: PIPERACILLIN/TAZOBACTAM 3.375 GM VIAL IV ONE (18:32)
[2019-05-30] MEDS ORDERED: RINGERS SOLUTION,LACTATED 1,000 ML IV PRN ×2 (21:14→23:05)
[2019-05-30] MEDS ORDERED: FENTANYL CITRATE INJ/PF 100 MCG/2 ML AMPUL IV ONE (21:17)
[2019-05-30] MEDS ORDERED: PIPERACILLIN/TAZOBACTAM 3.375 GM VIAL IV PRN (23:03)
[2019-05-30] MEDS ORDERED: ACETAMINOPHEN 325 MG TABLET PO PRN (23:07)
[2019-05-30] MEDS: MORPHINE SULFATE 10 MG/ML INJ IV PRN (23:41)
[2019-05-30] MEDS: PIPERACILLIN SODIUM/TAZOBACTAM 3.375 GM in NORMAL SALINE 100 ML IV SCH (23:42)
[2019-05-30] MEDS ORDERED: KETOROLAC TROMETHAMINE INJ/PF 30 MG/1 ML SDV ONE (23:52)
[2019-05-30] MEDS: KETOROLAC TROMETHAMINE INJ/PF 30 MG/1 ML SDV IV PRN (23:57)
[2019-05-31] MEDS ORDERED: VANCOMYCIN HCL INJ 1000 MG VIAL IV PRN (01:28)
[2019-05-31] MEDS ORDERED: PHARMACY COMMUNICATION ORDER MC PRN (01:37)
[2019-05-31] MEDS ORDERED: VANCOMYCIN HCL 1,000 MG in DEXTROSE 5%-WATER 250 ML IV ONE (02:00)
[2019-05-31] MEDS: MORPHINE SULFATE 10 MG/ML INJ IV PRN ×4 (03:38→19:36)
[2019-05-31 03:47] LABS: ABSOLUTE EOSINOPHILS # (AUTO) 0.1 10^3/uL (0.0-0.6); ABSOLUTE LYMPHOCYTES (AUTO) 0.9 10^3/uL (0.5-4.7); ABSOLUTE MONOCYTES (AUTO) 1.5 10^3/uL (0.1-1.4); BASOPHILS % (AUTO) 0.2 % (0-2); EOSINOPHILS % (AUTO) 0.5 % (0-6); HEMATOCRIT 34.9 % (37.9-51.0); HEMOGLOBIN 11.8 g/dL (13.5-17.0); LYMPHOCYTES % (AUTO) 7.4 % (13-45); MEAN CORPUSCULAR HEMOGLOBIN 28.7 pg (27.0-33.4); MEAN CORPUSCULAR HGB CONC 33.8 g/dL (32.0-36.0); MEAN CORPUSCULAR VOLUME 85 fl (80-97); PLATELET COUNT 227 10^3/uL (150-450); RED BLOOD COUNT 4.11 10^6/uL (4.35-5.55); RED CELL DISTRIBUTION WIDTH 13.3 % (11.5-14.0); SEGMENTED NEUTROPHILS % (AUTO) 79.9 % (42-78); TOTAL CELLS COUNTED % (AUTO) 100 %; WHITE BLOOD COUNT 12.5 10^3/uL (4.0-10.5)
[2019-05-31 04:12] LABS: ANION GAP 10 (5-19); BLOOD UREA NITROGEN 13 mg/dL (7-20); CALCIUM 8.6 mg/dL (8.4-10.2); CARBON DIOXIDE 25 mmol/L (22-30); CHLORIDE 103 mmol/L (98-107); GLUCOSE 104 mg/dL (75-110); POTASSIUM 3.6 mmol/L (3.6-5.0)
[2019-05-31] MEDS: KETOROLAC TROMETHAMINE INJ/PF 30 MG/1 ML SDV IV PRN ×3 (05:49→18:11)
[2019-05-31] MEDS: PIPERACILLIN SODIUM/TAZOBACTAM 3.375 GM in NORMAL SALINE 100 ML IV SCH ×3 (05:50→17:23)
[2019-05-31] MEDS ORDERED: VANCOMYCIN HCL 0 MG in DEXTROSE 5%-WATER 250 ML IV NR (08:15)
--- NOTE | 2019-05-31 09:21 | CRITICAL CARE ADMISSION REPORT ---
HPI Date:: 05/31/19 Reason for ICU Reason:: bacteremia, sepsis HPI: Pt is a 28 yo man with h/o IVDU who presented to the ED last night c/o right sided chest pain, fever, and low back pain. Pt has been seen in the ED on several prior occasions and was treated an an outpt for CAP. His blood cultures form 05/27 and 05/29 are positive for MRSA. Pt was admitted to the ICU due to concerns for possible infective endocarditis. He was started on vanc and zosyn. Today, pt continue to complain of severe low back pain. He states the pain has been present for several days. He denies any weakness, numbness, or bladder/bowel dysfunction. Past Medical History Pulmonary Medical History: Reports: Pneumonia Renal/ Medical History: Denies: End Stage Renal Disease Social/Family History - Social History Smoking Status: Former Smoker Frequency of Alcohol Use: None Hx Recreational Drug Use: Yes - Medication/Allergies Home Medications: Cefuroxime Axetil [Ceftin 500 mg Tablet] 500 mg PO Q12 05/31/19 Naproxen 500 mg PO BIDP PRN 05/31/19 Allergies/Adverse Reactions: No Known Allergies Allergy (Verified 05/27/19 03:30) Review of Systems Review of Systems: per HPI Constitutional: PRESENT: as per HPI Physical Exam Vital Signs: Temp Pulse Resp BP Pulse Ox 97.9 F 83 33 H 128/67 H 98 05/31/19 04:00 05/31/19 08:25 05/31/19 08:00 05/31/19 07:30 05/31/19 08:00 Intake & Output 05/30/19 05/31/19 06/01/19 06:59 06:59 06:59 Intake Total 4450 Output Total 1075 400 Balance 3375 -400 Weight 78.3 kg Weight/Height Weight 78.3 kg Height 6 ft General appearance: PRESENT: no acute distress, well-developed, well-nourished Head exam: PRESENT: atraumatic, normocephalic Respiratory exam: PRESENT: clear to auscultation cristian, unlabored Cardiovascular exam: PRESENT: RRR, other - no mrg GI/Abdominal exam: PRESENT: soft, other - non-tender, non-distended Musculoskeletal exam: PRESENT: normal inspection Neurological exam: PRESENT: alert, awake, other - normal strenght and sensation Psychiatric exam: PRESENT: appropriate affect Laboratory/Radiographs Laboratory Results: 05/31/19 03:37 05/31/19 03:37 05/30/19 05/30/19 05/30/19 17:05 17:05 17:05 WBC 16.5 H RBC 4.64 Hgb 13.4 L Hct 39.9 MCV 86 MCH 28.9 MCHC 33.7 RDW 13.4 Plt Count 281 Seg Neutrophils % 85.0 H Sodium 136.7 L Potassium 4.1 Chloride 98 Carbon Dioxide 28 Anion Gap 11 BUN 14 Creatinine 0.64 Est GFR ( Amer) > 60 Glucose 97 Lactic Acid 0.9 Calcium 9.2 Total Bilirubin 2.0 H AST 47 Alkaline Phosphatase 175 H Total Protein 6.7 Albumin 3.5 Urine Color Urine Appearance Urine pH Ur Specific [place] Urine Protein Urine Glucose (UA) Urine Ketones Urine Blood Urine Nitrite Ur Leukocyte Esterase Urine WBC (Auto) Urine RBC (Auto) 05/30/19 05/31/19 05/31/19 17:05 03:37 03:37 WBC 12.5 H RBC 4.11 L Hgb 11.8 L Hct 34.9 L MCV 85 MCH 28.7 MCHC 33.8 RDW 13.3 Plt Count 227 Seg Neutrophils % 79.9 H Sodium 137.9 Potassium 3.6 Chloride 103 Carbon Dioxide 25 Anion Gap 10 BUN 13 Creatinine 0.60 Est GFR ( Amer) > 60 Glucose 104 Lactic Acid Calcium 8.6 Total Bilirubin AST Alkaline Phosphatase Total Protein Albumin Urine Color JONES Urine Appearance CLEAR Urine pH 6.0 Ur Specific [place] 1.021 Urine Protein 100 H Urine Glucose (UA) NEGATIVE Urine Ketones NEGATIVE Urine Blood MODERATE H Urine Nitrite NEGATIVE Ur Leukocyte Esterase NEGATIVE Urine WBC (Auto) 4 Urine RBC (Auto) 6 05/30/19 17:05 Troponin I < 0.012 NT-Pro-B Natriuret Pep 350 H Impressions: Chest X-Ray 05/30/19 17:18 IMPRESSION: New small areas of patchy right basilar airspace disease and small pleural effusion. Critical Time -: The care of a critically ill patient is dynamic. This note represents a static moment in the admission process. orders and treatments may be given simulataneously and urgentl, and time is not automobile rental representative of the treatment process. This patient requires Critical Care secondary to life threating organ or limb dysfunction. Without the need for Critical Care services, the patient is at risk for increasid mortality and morbidity. Provider Note Provider Note: Assessment: 28 yo man with h/o IV drug use, MRSA bacteremia, sepsis, PNA, back pain. Plan: 1. Respiratory: stable on room air 2. Pulmonary: PNA, RLL. Continue vanc and zosyn. 3. CV: heart rate and BP acceptable. D/C IVF. Will order echo to eval for endocarditis 4. Musculoskeletal: LBP. Will order MRI of thoracic and lumbar spine 5. ID: sepsis, MRSA bacteremia, PNA. Continue vanc and zosyn. Repeat cultures pending. Echo pending. Check for influenza 6. Psych/Social: h/o IVDU. Check UDS 7. Nutrition: regular diet 8. Prophylaxis: sq heparin 9. Disposition: stable for transfer out of ICU
[2019-05-31 09:30] LABS: URINE AMPHETAMINES SCREEN NEGATIVE; URINE BARBITURATES SCREEN NEGATIVE; URINE BENZODIAZEPINES SCREEN NEGATIVE; URINE COCAINE SCREEN NEGATIVE; URINE MARIJUANA (THC) SCREEN NEGATIVE; URINE METHADONE SCREEN NEGATIVE; URINE PHENCYCLIDINE SCREEN NEGATIVE
[2019-05-31 09:42] LABS: A TYPE INFLUENZA AG NEGATIVE (NEGATIVE); B INFLUENZA AG NEGATIVE (NEGATIVE)
[2019-05-31] MEDS ORDERED: HEPARIN SOD (PORCINE) 5,000 UNIT/ML 1 ML VIAL SUBCUT SCH (10:00)
--- NOTE | 2019-05-31 13:16 | Progress Note ---
Provider Note Provider Note: Spoke to radiologist regarding MRIs. MRIs showeed epidural abscess of lower dorsal spine with cord compression and paraspinous abscesses. I spoke with pt and told him of the results. He has no neurological finding. Normal ambulation, normal strength, normal sensation, normal bowel and bladder function. I will transfer the pt to [facility] for neurosurgical evaluation and management.
--- NOTE | 2019-05-31 13:24 | RADIOLOGY REPORT (SQ) ---
EXAM DESCRIPTION: MRI THORACIC SPINE COMBO COMPLETED DATE/TIME: 05/31/2019 12:19 pm REASON FOR STUDY: severe back pain, MRSA bacteremia,eval for abscess COMPARISON: MRI lumbar spine same date CT chest abdomen pelvis 05/27/2019 TECHNIQUE: Sagittal and Axial imaging includes T1, T2, STIR and gradient echo sequences. T1 post ga dolinium sequences. CONTRAST TYPE AND DOSE: 15 mL Dotarem. RENAL FUNCTION: Not indicated. ACR Type II contrast agent associated with few, if any, unconfounded cases of NSF LIMITATIONS: None. FINDINGS: From about the T8-9 disc level down through the mid L1 level, a dorsal epidural abscess is present in the spinal canal, with peripheral rim enhancement on post contrasted series 17, images 6- 10. Abscess measures 12 cm (craniocaudad) by 2 cm (transverse) by 1.2 cm (AP). There is mass effect with mild flattening of the distal thoracic cord and conus., Mild edema in the spinal cord without abnormal spinal cord enhancement. The epidural abscess communicates with multiple smaller abscesses in the paraspinal soft tissues/para spinal muscles. The largest right paraspinal abscess is along the dorsal aspect of the right 9th rib , 6 cm (transverse) by 2 cm (AP). A second, smaller paraspinal abscess ventral to the right 9th rib is present, 4 x 2 cm in size. These are best shown on axial image 40. Multiple smaller paraspinal a bscesses are seen along the left side. At the edge of the field of view, a small right pleural effusion and right basilar lung consolidation is present, more prominent than on CTA chest 05/27/2019 ALIGNMENT: Normal. VERTEBRAE: Intact. BONE MARROW: There is mild marrow edema along the T9-10 and T10-11 facet joints worrisome for infecti on and early osteomyelitis HARDWARE: None in the spine. CORD: There is mild dorsal cord flattening from T9 through T12 from the dorsal epidural abscess. No abnormal cord signal or contrast enhancement SOFT TISSUES: As above THORACIC DISCS T1-T12: Minimal posterior disc bulging is seen at T8-9 T9-10 IMPRESSION: Dorsal epidural abscess in the spinal canal from about the T8-9 disc level down to the m id L1 level. There an enhancing abscess within the canal flattening the dorsal spinal cord without d efinite abnormal intrinsic cord signal or cord enhancement. Right paraspinal abscesses with right pleural effusion and consolidation in the posterior right lower lobe. COMMENT: Findings communicated as a critical result by Dr. Houston to Dr. Garrett in the emergency ro om TECHNICAL DOCUMENTATION: JOB ID: [id number] [employer]- All Rights Reserved Reading location - IP/workstation name: [email or web address]
--- NOTE | 2019-05-31 13:28 | PDOC TRANSFER SUMMARY ---
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 Is this a current diagnosis for this admission?: Yes (2) Bacteremia Is this a current diagnosis for this admission?: Yes (3) Pneumonia Is this a current diagnosis for this admission?: Yes (4) History of intravenous drug abuse Is this a current diagnosis for this admission?: Yes - Transfer Medications Home Medications: Cefuroxime Axetil [Ceftin 500 mg Tablet] 500 mg PO Q12 05/31/19 Naproxen 500 mg PO BIDP PRN 05/31/19 Transfer Medications: Current Medications Acetaminophen (Tylenol 325 Mg Tablet) 650 mg PO Q4HP PRN PRN Reason: FEVER/PAIN Stop: 06/29/19 23:06 Heparin Sodium (Porcine) (Heparin Inj 5,000 Units/Ml 1 Ml Vial) 5,000 unit SUBCUT Q12 RIVERA Stop: 06/30/19 09:59 Last Admin: 05/31/19 12:30 Dose: 5,000 unit Documented by: Piperacillin Sod/Tazobactam (Sod 3.375 gm/ Sodium Chloride) 100 mls @ 200 mls/hr IV Q6 RIVERA Stop: 06/07/19 00:00 Last Admin: 05/31/19 12:29 Dose: 200 mls/hr Documented by: Vancomycin HCl 1,500 mg/ (Dextrose) 250 mls @ 166.667 mls/hr IV Q8@0700,1500,2300 RIVERA Stop: 06/07/19 13:29 Ketorolac Tromethamine (Toradol Inj/Pf 30 Mg/1 Ml Sdv) 30 mg IV Q6HP PRN PRN Reason: PAIN Stop: 06/04/19 23:51 Last Admin: 05/31/19 12:29 Dose: 30 mg Documented by: Morphine Sulfate (Morphine 10 Mg/Ml Inj) 2 mg IV Q4HP PRN PRN Reason: SEVERE PAIN Stop: 06/06/19 23:06 Last Admin: 05/31/19 07:49 Dose: 2 mg Documented by: - Allergies Allergies/Adverse Reactions: No Known Allergies Allergy (Verified 05/27/19 03:30) - Diet/Activity Discharge Diet: As Tolerated Discharge Activity: Activity As Tolerated Hospital Course Hospital Course: Pt is a 28 yo man with h/o IVDU who presented to the ED last night c/o right sided chest pain, fever, and low back pain. Pt has been seen in the ED on several prior occasions and was treated an an outpt for CAP. His blood cultures form 05/27 and 05/29 are positive for MRSA. Pt was admitted to the ICU due to concerns for possible infective endocarditis. He was started on vanc and zosyn. Today, pt continue to complain of severe low back pain. He states the pain has been present for several days. He denies any weakness, numbness, or bladder/bowel dysfunction Pt was continued on vanc and zosyn. MRI of thoracic and lumbar spine showes epidural abscess of the lower dorsal spine with cord compresson; paraspinous abscesses. Pt will be transferred to [facility] for neurosurgical evaluation and management. Assessment: 28 yo man with h/o IV drug use, MRSA bacteremia, sepsis, PNA, epidural and paraspinous processes. Plan: 1. Respiratory: stable on room air 2. Pulmonary: PNA, RLL. Continue vanc and zosyn. 3. CV: heart rate and BP acceptable. Will order echo to al for endocarditis 4. Neurosurgery: epidural abscess with cord compression and paraspinous abscess. Verbal report from Dr. Ross, radiologist. Pt has no neurological symptoms: denies gait difficulty, no weakness, no numbness, no bladder or bowel dysfunction. Will transfer to [facility] for neursurgical evaluation and managment. 5. ID: sepsis, MRSA bacteremia, PNA, epidural and paraspinous abscesses.. Continue vanc and zosyn. Repeat cultures pending. Echo pending. 6. Psych/Social: h/o IVDU. UDS pending 7. Nutrition: regular diet 8. Prophylaxis: sq heparin 9. Pt will be transferred to [facility]. Dr. Webb is the accepting physician. Physical Exam Vital Signs: Temp Pulse Resp BP Pulse Ox 97.8 F 83 24 H 135/88 H 80 L 05/31/19 08:00 05/31/19 08:25 05/31/19 09:29 05/31/19 09:29 05/31/19 10:01 Intake & Output 05/30/19 05/31/19 06/01/19 06:59 06:59 06:59 Intake Total 4450 Output Total 1075 400 Balance 3375 -400 Weight 78.3 kg General appearance: PRESENT: no acute distress, well-developed, well-nourished Head exam: PRESENT: atraumatic, normocephalic Respiratory exam: PRESENT: clear to auscultation cristina, unlabored Cardiovascular exam: PRESENT: RRR Musculoskeletal exam: PRESENT: tenderness - TTP thoracic spine Neurological exam: PRESENT: alert, awake, normal gait, other - normal gait, normal strength, normal sensation Results Laboratory Results: 05/31/19 03:37 05/31/19 03:37 05/30/19 05/30/19 05/30/19 17:05 17:05 17:05 WBC 16.5 H RBC 4.64 Hgb 13.4 L Hct 39.9 MCV 86 MCH 28.9 MCHC 33.7 RDW 13.4 Plt Count 281 Seg Neutrophils % 85.0 H Sodium 136.7 L Potassium 4.1 Chloride 98 Carbon Dioxide 28 Anion Gap 11 BUN 14 Creatinine 0.64 Est GFR ( Amer) > 60 Glucose 97 Lactic Acid 0.9 Calcium 9.2 Total Bilirubin 2.0 H AST 47 Alkaline Phosphatase 175 H Total Protein 6.7 Albumin 3.5 Urine Color Urine Appearance Urine pH Ur Specific [place] Urine Protein Urine Glucose (UA) Urine Ketones Urine Blood Urine Nitrite Ur Leukocyte Esterase Urine WBC (Auto) Urine RBC (Auto) 05/30/19 05/31/19 05/31/19 17:05 03:37 03:37 WBC 12.5 H RBC 4.11 L Hgb 11.8 L Hct 34.9 L MCV 85 MCH 28.7 MCHC 33.8 RDW 13.3 Plt Count 227 Seg Neutrophils % 79.9 H Sodium 137.9 Potassium 3.6 Chloride 103 Carbon Dioxide 25 Anion Gap 10 BUN 13 Creatinine 0.60 Est GFR ( Amer) > 60 Glucose 104 Lactic Acid Calcium 8.6 Total Bilirubin AST Alkaline Phosphatase Total Protein Albumin Urine Color JONES Urine Appearance CLEAR Urine pH 6.0 Ur Specific [place] 1.021 Urine Protein 100 H Urine Glucose (UA) NEGATIVE Urine Ketones NEGATIVE Urine Blood MODERATE H Urine Nitrite NEGATIVE Ur Leukocyte Esterase NEGATIVE Urine WBC (Auto) 4 Urine RBC (Auto) 6 05/30/19 17:05 Troponin I < 0.012 NT-Pro-B Natriuret Pep 350 H Impressions: Chest X-Ray 05/30/19 17:18 IMPRESSION: New small areas of patchy right basilar airspace disease and small pleural effusion. MRI results pending. Plan Time Spent: Greater than 30 Minutes
--- NOTE | 2019-05-31 13:29 | RADIOLOGY REPORT (SQ) ---
EXAM DESCRIPTION: MRI LUMBAR SPINE COMBO COMPLETED DATE/TIME: 05/31/2019 12:19 pm REASON FOR STUDY: low back pain, MRSA bacteremia, eval for abscess COMPARISON: MRI thoracic spine same date TECHNIQUE: Sagittal and Axial imaging includes T1, T1 post gadolinium, T2, STIR and gradient echo se quences. Coronal T2/HASTE imaging. CONTRAST TYPE AND DOSE: 15 mL Dotarem. RENAL FUNCTION: Not indicated. ACR Type II contrast agent associated with few, if any, unconfounded cases of NSF LIMITATIONS: None. FINDINGS: At the upper edge of the field of view, a dorsal epidural abscess is present within the sp inal canal extending from the mid T11 level through the T12-L1 levels. This flattens the dorsal aspe ct of the distal thoracic spinal cord and conus without abnormal contrast enhancement or intrinsic si gnal. Findings are best shown on sagittal images 7 through 11. On the axial images through the lower thoracic spine, right-sided paraspinal abscess is in the parasp inal muscles are present. These are better demonstrated on the thoracic MRI SEGMENTATION: No transitional anatomy. The lowest well-developed disc space is labeled L5-S1. ALIGNMENT: Anatomic. VERTEBRAE: Intact. No fractures. BONE MARROW: Normal. No marrow replacement or reactive changes. DISC SIGNAL: Normal. No significant abnormal signal or loss of height. POSTERIOR ELEMENTS: Generally intact. No pars defect evident. HARDWARE: None in the spine. CORD AND CONUS: As above SOFT TISSUES: Paraspinal abscess is in the lower thoracic region L1-L2: No significant spinal stenosis or exit foraminal stenosis. L2-L3: No significant spinal stenosis or exit foraminal stenosis. L3-L4: No significant spinal stenosis or exit foraminal stenosis. L4-L5: No significant spinal stenosis or exit foraminal stenosis. L5-S1: No significant spinal stenosis or exit foraminal stenosis. ENHANCEMENT: Enhancing dorsal spinal canal epidural abscess at the upper edge of the field of view mi d T11 level down to T12-L1. OTHER: No other significant findings. IMPRESSION: Epidural abscess in the lower thoracic and upper lumbar spinal canal, flattening the dis ramón thoracic cord and conus without abnormal spinal cord signal or enhancement. Paraspinal abscesses in the soft tissues right greater than left. COMMENT: These findings were called to Dr. Garrett by Dr. Houston, as a critical result TECHNICAL DOCUMENTATION: JOB ID: [id number] All Rights Reserved Reading location - IP/workstation name: [email or web address]
[2019-05-31] MEDS ORDERED: VANCOMYCIN HCL 1,500 MG in DEXTROSE 5%-WATER 250 ML IV SCH (13:30)
[2019-05-31] MEDS ORDERED: MORPHINE SULFATE 10 MG/ML INJ IV ONE (17:00)
--- NOTE | 2019-05-31 17:03 | Progress Note ---
Provider Note Provider Note: Still awaiting a bed at [facility]. Have called [facility] and they have accepted pt. However, they don't know when a bed will become available.
[2019-05-31 22:37] VITALS: BP 145/75
== END 2019-05-31 21:28 | disposition short-term general hospital (02) | DRG 94 ==
LOC: ER 16:32 → EH 21:38 → ICU 22:18
PROVIDERS: ADMIT Internal Medicine; ATTEND Internal Medicine
DX: G06.1 Intraspinal abscess and granuloma (principal); J18.9 Pneumonia, unspecified organism; R78.81 Bacteremia; F19.10 Other psychoactive substance abuse, uncomplicated; B95.62 Methicillin resistant Staphylococcus aureus infection as the cause of diseases classified elsewhere; F17.200 Nicotine dependence, unspecified, uncomplicated
CPT/HCPCS: 36415; 71046; 72157; 72158; 80048; 80053; 80307; 81001; 83605; 83880; 84484; 85025; 87040; 87070; 87077; 87186; 87205; 87804; 96361; 96365; 96366; 96375; 96376; 99291; A9576; J1644; J1885; J2270; J2405; J2543; J3010; J3370; J7030; J7050; J7060; J7120